=== PATIENT | male | born 1975 | race Caucasian/White ===

== ENCOUNTER 2017-03-24 13:16 | Emergency (ER) | payer SELFPAY ==
[2017-03-24 13:21] VITALS: BP 172/102; PULSE 87; RESP 16; TEMP 97.9; O2SAT 97
--- NOTE | 2017-03-24 13:29 | EDPHY ---
H & P Stated Complaint: Inury to right calf 1 week ago, now has "blackened toes and hamstring". Time Seen by Provider: 03/24/17 13:29 HPI/ROS: CHIEF COMPLAINT: Right lower extremity pain, swelling and ecchymosis HISTORY OF PRESENT ILLNESS: The patient presents the ED for evaluation of progressive right lower extremity swelling and ecchymosis. The patient has minimal complaints of pain. The patient reportedly was running about a week ago when he injured his calf. He did not think much of it at that time however over the past several days has developed ecchymosis in his foot but also tracking superiorly up into his mid thigh. The patient denies any numbness or weakness. The patient denies any anticoagulant use. The patient denies any pain with passive or active range of motion. REVIEW OF SYSTEMS: A comprehensive 10 point review of systems is otherwise negative aside from elements mentioned in the history of present illness. Source: Patient - Personal History Current Tetanus Diphtheria and Acellular Pertussis (TDAP): Yes - Medical/Surgical History Hx Asthma: No Hx Chronic Respiratory Disease: No Hx Diabetes: No Hx Cardiac Disease: No Hx Renal Disease: No Hx Cirrhosis: No Hx Alcoholism: No Hx HIV/AIDS: No Hx Splenectomy or Spleen Trauma: No Other PMH: HTN. Anxiety. - Social History Smoking Status: Never smoked - Physical Exam Exam: General Appearance: Alert, no distress Head: Atraumatic Eyes: Pupils equal, round, reactive ENT, Mouth: No hemotympanum, no oral trauma Neck: Nontender, trachea midline Respiratory: No chest wall tender, subcutaneous air, lungs clear bilaterally Cardiovascular: Regular rate and rhythm Abdomen: Abdomen is soft and nontender, pelvis stable Skin: Ecchymosis noted throughout the right lower extremity primarily in the right calf but also extending up into the right medial thigh and onto the dorsum of the right foot Back: No midline T/L/S pain Extremities: Asymmetric swelling noted in the right calf with 1+ pedal edema, 2 + dorsalis pedis and posterior tibial pulses noted Neurological: A&Ox3, normal motor function, normal sensory exam Constitutional: Initial Vital Signs Temperature (C) 36.6 C 03/24/17 13:17 Heart Rate 87 03/24/17 13:17 Respiratory Rate 16 03/24/17 13:17 Blood Pressure 172/102 H 12/13/17 13:17 O2 Sat (%) 97 03/24/17 13:17 O2 Delivery Mode Room Air Allergies/Adverse Reactions: metoclopramide [From Reglan] Allergy (Verified 03/24/17 13:22) Home Medications: Medication Instructions Recorded Catapres 03/24/17 Lexapro 03/24/17 Temazepam 03/24/17 Medical Decision Making - Diagnostics Imaging Results: Imaging Impressions Extremity Venous Study 03/24/17 13:32 Impression: 1. No evidence of deep vein thrombosis. 2. Small heterogeneous fluid collection in the proximal calf suggesting intramuscular hematoma. Findings discussed with Stephen Faust 03/24/2017 at 14:35. ED Course/Re-evaluation: The patient presents the ED for evaluation of right calf pain and swelling. The patient clearly had a musculoskeletal injury precipitating this event. Given the amount of asymmetric swelling and edema present on exam and ultrasound was ordered to exclude presence of a DVT. Fortunately, the results of this study are normal in demonstrate only a small intramuscular hematoma. The patient has no clinical evidence of compartment syndrome. The patient is advised to ice and elevate the extremity. He should return to the ED for any progressive pain or swelling. Differential Diagnosis: Differential diagnosis considered includes hematoma, compartment syndrome, DVT, arterial insufficiency Departure - Departure Disposition: Home, Routine, Self-Care Clinical Impression: Leg hematoma Condition: Good Instructions: Contusion in Adults (ED) Additional Instructions: 1. Elevate extremity at night. 2. Ice 20 min at a time several times a day. 3. Your ultrasound demonstrates no evidence of a blood clot. 4. I expect your symptoms should be improving over the next several weeks. I recommend a repeat ultrasound for any progressive pain or swelling.
== END 2017-03-24 14:52 | disposition home or self-care (01) ==
DX: M79.81 Nontraumatic hematoma of soft tissue (principal); I10 Essential (primary) hypertension